=== PATIENT | female | born 1955 | race Two or more races ===

== ENCOUNTER 2017-05-14 05:02 | Inpatient (IN) | payer OTHER ==
[~2017-05-14] VITALS: Ht 165.1 cm; Wt 72.6 kg
[~2017-05-14 05:02] MED LIST: FOLI1TAB16 PO; FURO-145 PO; METO-295 PO; OMEP20TA5 PO; POTA10TA10 PO; PRAM0.253 PO; PROP80CA PO
[2017-05-14] MEDS ORDERED: MIDAZOLAM HCL 2 MG/2ML VIAL ONE (09:13)
[2017-05-14] MEDS ORDERED: MORPHINE SULFATE/PF 10 MG/10ML (1MG/ML) AMPUL ONE (09:13)
[2017-05-14] MEDS ORDERED: BACITRACIN 50000 UNITS/VIAL ONE (09:16)
[2017-05-14] MEDS ORDERED: TRANEXAMIC ACID 3,000 MG in SODIUM CHLORIDE IRRIG SOLUTION 70 ML IR ONE (09:30)
[2017-05-14] MEDS ORDERED: CLINDAMYCIN 900 MG/6 ML VIAL ONE (10:02)
[2017-05-14] MEDS ORDERED: MORPHINE SULFATE INJ 10 MG/ML DISP.SYRIN ONE (11:55)
[2017-05-14] MEDS ORDERED: ONDANSETRON HCL/PF 4 MG/2 ML VIAL ONE (11:59)
[2017-05-14 12:40] VITALS: BP 82/58
[2017-05-14] MEDS ORDERED: GABA600T2 PO (13:25)
[2017-05-14] MEDS ORDERED: ROPI0.5T PO (13:27)
[2017-05-14] MEDS ORDERED: MORPHINE SULFATE INJ 4 MG/ML DISP.SYRIN IV PRN (13:30)
[2017-05-14] MEDS: IV LR 1000 ML 1,000 ML IV PRN (13:49)
[2017-05-14] MEDS ORDERED: BISACODYL SUPP (10 MG) 10 MG/SUPP.RECT SUPP.RECT RC PRN (14:00)
[2017-05-14] MEDS ORDERED: SENNOSIDES 8.6 MG TABLET PO PRN (14:00)
[2017-05-14] MEDS ORDERED: HYDROCODONE/APAP 5/325MG 1 EACH TABLET PO PRN ×3 (14:00→16:00)
[2017-05-14] MEDS ORDERED: ONDANSETRON HCL/PF 4 MG/2 ML VIAL IV PRN ×2 (14:00→14:30)
[2017-05-14] MEDS ORDERED: ACETAMINOPHEN 325 MG TABLET PO PRN ×2 (14:00→16:00)
[2017-05-14] MEDS ORDERED: DOCUSATE SODIUM 100 MG CAPSULE PO PRN (14:00)
[2017-05-14] MEDS ORDERED: ZOLPIDEM TARTRATE 5 MG TABLET PO PRN ×2 (14:00→16:00)
--- NOTE | 2017-05-14 14:00 | NUR ---
RN ADMITTING NOTES PATIENT ARRIVED TO UNIT FROM OR. PATIENT ADMITTED TO ROOM 308-2. SYSTOLIC BLOOD PRESSURE IS 82. DR MCNEAL MADE AWARE. NO NEW ORDERS. WILL CONTINUE TO MONITOR AND ASSESS PATIENT THROUGHOUT MY SHIFT
[2017-05-14] MEDS ORDERED: HYDROMORPHONE 1 MG/1 ML DISP.SYRIN SQ PRN (14:30)
[2017-05-14] MEDS ORDERED: diphenhydrAMINE HCL 25 MG CAPSULE PO PRN (14:30)
[2017-05-14] MEDS ORDERED: MAG HYDROX/AL HYDROX/SIMETH 30 ML UDC PO PRN ×2 (14:30→16:00)
[2017-05-14] MEDS ORDERED: ropiniROLE 0.5 MG TABLET PO SCH (14:30)
[2017-05-14] MEDS ORDERED: MENTHOL/CETYLPYRD (CEPACOL) 1 LOZ LOZENGE PO PRN (14:30)
[2017-05-14] MEDS ORDERED: HYDROCODONE/APAP 10/325MG 1 EA TABLET PO PRN (14:30)
[2017-05-14] MEDS ORDERED: PRAMIPEXOLE DI-HCL 0.25 MG TABLET PO SCH (14:30)
[2017-05-14] MEDS ORDERED: BUTALB/APAP/CAFFEINE 1 EACH TABLET PO PRN ×2 (14:30→20:30)
[2017-05-14] MEDS ORDERED: HYDROMORPHONE 1 MG/1 ML DISP.SYRIN SQ ONE (14:54)
[2017-05-14] MEDS ORDERED: PROPRANOLOL HCL 40 MG TABLET PO ONE (15:00)
[2017-05-14] MEDS: ANCEF 1 GM/50 ML D5W IV SCH ×2 (15:29)
[2017-05-14] MEDS ORDERED: MORPHINE SULFATE INJ 4 MG/ML DISP.SYRIN IM PRN (15:30)
[2017-05-14] MEDS ORDERED: ONDANSETRON HCL/PF 4 MG/2 ML VIAL IVP PRN (16:00)
[2017-05-14] MEDS ORDERED: Z GUARD REMEDY 2 OZ OINT TP PRN (16:00)
[2017-05-14] MEDS ORDERED: MAGNESIUM HYDROXIDE 30 ML UDC PO PRN (16:00)
[2017-05-14] MEDS ORDERED: MORPHINE SULFATE INJ 4 MG/ML DISP.SYRIN IM ONE (16:30)
--- NOTE | 2017-05-14 16:45 | NUR ---
SYSTOLIC BLOOD PRESSURE 70/48. DR DUBOSE MADE AWARE. ENCOURAGED PATIENT TO DRINK LOTS OF FLUID. PATIENT IS ASYMPTOMATIC. PER PATIENT; THIS IS NORMAL FOR HER.
[2017-05-14] MEDS: ropiniROLE 0.5 MG TABLET PO SCH (16:57)
[2017-05-14] MEDS ORDERED: GABAPENTIN 300 MG CAPSULE PO SCH (17:00)
[2017-05-14] MEDS ORDERED: BUTALBITAL/ASPIRIN/CAFFEINE 1 CAP CAPSULE PO PRN (18:00)
--- NOTE | 2017-05-14 18:00 | NUR ---
NARES SWAB COLLECTED AND SENT TO LAB FOR MRSA TEST
[2017-05-14 18:01] VITALS: BP_SYST 116; BP_SYST 70; BP_DIAS 48; BP_DIAS 70
[2017-05-14] MEDS: GABAPENTIN 300 MG CAPSULE PO SCH (18:05)
--- NOTE | 2017-05-14 18:45 | NUR ---
IV IS LEAKING. DC IV SITE AND STARTED A NEW R. AC 22G
--- NOTE | 2017-05-14 19:01 | NUR ---
RN CLOSING NOTES PATIENT IS IN BED. ALERT AND ORIENTED TO NAME, PLACE AND TIME. NO SIGNS AND SYMPTOMS OF DISTRESS. DENIED PAIN. IV SITE IS INTACT AND PATENT. ALL NURSING CARE ANTICIPATED AND MET. PATIENT KEPT SAFE AND CLEAN. BED IN LOW POSITION, LOCKED AND TWO SIDE RAILS ARE UP. CALL LIGHT WITHIN REACH FOR SAFETY. WILL ENDORSE TO INTELLECTUAL PROPERTY LAWYER NURSE.
[2017-05-14 20:00] VITALS: BP 93/47
--- NOTE | 2017-05-14 20:05 | NUR ---
RN NOTES RECEIVED PATIENT IN BED, ALERT AND ORIENTED X4, CALM, NO SOB, ON ROOM AIR, SPO2 99%, S/P RIGHT HIP SURGERY THIS AFTERNOON, RIGHT HIP WITH DRESSING, NO BLEEDING, HIP ABDUCTION PILLOW IN PLACE, NO COMPLAIN OF PAIN, RIGHT AC PERIPHERAL LINE IS PATENT AND INFUSING WELL, PER ENDORSEMENT, BP RUNS LOW, RECEIVING LR AT 100 CC/HR, NEEDS ATTENDED, CALL LIGHT WITHIN REACH. WILL CONTINUE TO MONITOR.
[2017-05-14 20:10] VITALS: BP 93/47
[2017-05-14] MEDS ORDERED: oxyCODONE HCL SR 20MG TAB.SR.12H PO SCH (21:00)
--- NOTE | 2017-05-14 21:44 | NUR ---
RN NOTES RIGHT AC PERIPHERAL LINE IS INFILTRATED, UNABLE TO REINSERT IV LINE. DR. HYMAN ORDERED MIDLINE INSERTION
[2017-05-14] MEDS: PRAMIPEXOLE DI-HCL 0.25 MG TABLET PO SCH (21:50)
[2017-05-14] MEDS: PANTOPRAZOLE 40 MG TABLET.DR PO SCH (21:50)
--- NOTE | 2017-05-14 22:45 | NUR ---
RN NOTES MIDLINE INSERTED USING #18 GAUGE, PROCEDURE TOLERATED WELL, REMOVED AC PERIPHERAL LINE
[2017-05-15] MEDS: ANCEF 1 GM/50 ML D5W IV SCH ×2 (00:05)
[2017-05-15] MEDS: oxyCODONE IR immediate release 5 MG CAPSULE PO PRN ×4 (02:44→23:04)
[2017-05-15] MEDS: IV LR 1000 ML 1,000 ML IV PRN ×3 (02:52→23:02)
--- NOTE | 2017-05-15 06:47 | NUR ---
RN NOTES PATIENT IN BED, ALERT AND AWAKE, NO SOB, NO RESPIRATORY DISTRESS, SPO2 AT ROOM AIR 96%, GIVEN OXYCODONE 5 MG PRN, FAY MIDLINE INFUSING WELL, PROVIDED GOOD PERINEAL CARE, REPOSITIONED FOR COMFORT, HIP ABDUCTOR PILLOW IN PLACE, NEEDS ATTENDED, CALL LIGHT WITHIN REACH.
[2017-05-15 06:53] LABS: BASOPHILS % (AUTO) 0.2 % (0.0-2.0); EOSINOPHILS % (AUTO) 0.1 % (0.0-6.0); HEMATOCRIT 25 % (33-45); HEMOGLOBIN 8.5 g/dL (11.5-14.8); LYMPHOCYTES # (AUTO) 1.2 /CMM (0.8-4.8); LYMPHOCYTES % (AUTO) 16.3 % (20.0-44.0); MEAN CORPUSCULAR HEMOGLOBIN 31 PG (26.0-33.0); MEAN CORPUSCULAR HGB CONC 34 g/dl (31.0-36.0); MEAN CORPUSCULAR VOLUME 89 fL (82-100); MONOCYTES # (AUTO) 0.6 /CMM (0.1-1.30); MONOCYTES % (AUTO) 8.2 % (2.0-12.0); NEUTROPHILS # (AUTO) 5.7 /CMM (1.8-8.9); NEUTROPHILS % (AUTO) 75.2 % (43.0-81.0); PLATELET COUNT (AUTO) 170 /CMM (150-450); RDW COEFFICIENT OF VARIATION 14.2 (11.5-15.0); RED BLOOD CELL COUNT(AUTO) 2.79 MIL/uL (4.0-5.2); WHITE BLOOD COUNT (AUTO) 7.5 K/uL (4.3-11.0)
[2017-05-15 06:56] LABS: INR 1.03 (0.87-1.13); PROTHROMBIN TIME 10.7 SECS (9.5-12.7)
--- NOTE | 2017-05-15 07:15 | NUR ---
RN OPEN NOTES RECEIVED REPORT FROM MOLDING ROOM SUPERVISOR NURSE. PATIENT IS IN BED. ALERT AND ORIENTED TO NAME,PLACE AND TIME. NO SIGNS AND SYMPTOMS OF DISTRESS. PAIN LEVEL 2/10. BED IN LOW POSITION, LOCKED AND TWO SIDE RAILS ARE UP. CALL LIGHT WITHIN REACH FOR SAFETY. WILL CONTINUE TO MONITOR AND ASSESS PATIENT THROUGH OUT MY SHIFT
[2017-05-15 08:00] VITALS: BP 78/53
[2017-05-15 08:06] LABS: ALBUMIN 2.8 g/dL (3.4-5.0); BILIRUBIN,TOTAL 0.5 mg/dL (0.2-1.0); CALCIUM, SERUM 7.8 mg/dL (8.5-10.1); CREATININE 0.8 mg/dL (0.6-1.3); MAGNESIUM 1.8 mg/dL (1.8-2.4); PHOSPHORUS 2.8 mg/dL (2.5-4.9); POTASSIUM 3.8 mmol/L (3.5-5.1); TOTAL PROTEIN, SERUM 5.5 g/dL (6.4-8.2)
[2017-05-15 08:15] LABS: THYROID STIMULATING HORMONE 0.907 uIU/mL (0.358-3.74)
[2017-05-15] MEDS: GABAPENTIN 300 MG CAPSULE PO SCH ×3 (08:24→16:34)
[2017-05-15] MEDS: FOLIC ACID 1 MG TABLET PO SCH (08:24)
[2017-05-15] MEDS: ropiniROLE 0.5 MG TABLET PO SCH (08:24)
[2017-05-15] MEDS: PROPRANOLOL HCL 40 MG TABLET PO SCH (08:28)
[2017-05-15] MEDS ORDERED: Medication Not On Formulary EA (Propranolol HCl (Inderal LA) 80 MG) PO SCH (09:00)
[2017-05-15] MEDS ORDERED: PRAMIPEXOLE DI-HCL 0.25 MG TABLET PO SCH (09:00)
[2017-05-15 09:21] LABS: IRON, SERUM 27 ug/dl (50-175); TOTAL IRON BINDING CAPACITY 213 ug/dl (250-450)
[2017-05-15 12:32] VITALS: BP 83/51
[2017-05-15 16:00] VITALS: BP 96/56
[2017-05-15] MEDS: RIVAROXABAN 10 MG TABLET PO SCH (16:34)
--- NOTE | 2017-05-15 18:36 | NUR ---
RN CLOSING NOTES PATIENT IS IN BED. ALERT AND ORIENTED TO NAME, PLACE AND TIME. NO SIGNS AND SYMPTOMS OF DISTRESS. DENIED PAIN. MIDLINE IS INTACT AND PATENT. ALL NURSING CARE ANTICIPATED AND MET. PATIENT KEPT SAFE AND CLEAN. BED IN LOW POSITION, LOCKED AND TWO SIDE RAILS ARE UP. CALL LIGHT WITHIN REACH FOR SAFETY. WILL ENDORSE TO INTERNAL AFFAIRS INVESTIGATOR NURSE.
--- NOTE | 2017-05-15 19:30 | NUR ---
RN NOTES RECEIVED PATIENT IN BED ASLEEP, EASILY AROUSABLE. AO X 3, ABLE TO MAKE NEEDS KNOWN. NO ACUTE DISTRESS NOTED. DENIES ANY PAIN AT THIS TIME. IV SITE PATENT, INTACT; FLUSHED. ABDUCTION PILLOW IN PLACE. HIP PRECAUTIONS MAINTAINED. SAFETY REMINDERS GIVEN. ON LOW BED WITH BILATERAL UPPER SIDE RAILS UP. CALL BUTTON WITHIN EASY REACH. WILL CONTINUE TO MONITOR.
[2017-05-15 20:00] VITALS: BP 88/56
[2017-05-15 20:05] VITALS: BP 88/56
[2017-05-15] MEDS: PRAMIPEXOLE DI-HCL 0.25 MG TABLET PO SCH (21:18)
[2017-05-15] MEDS: PANTOPRAZOLE 40 MG TABLET.DR PO SCH (21:18)
--- NOTE | 2017-05-15 21:44 | NUR ---
POD#1 S/P Right total hip arthroplasty.. Patient is alert and pleasant. Lives at home with her spouse. Prior to admission, she was ambulatory and independent with adl's. She own a walker and raised toilet seat. No homehealth reported. Current plan is home vs ARU - pending insurance auth. Addendum: 05/15/17 at 2147 by JORGE REYNOSO RN Amended: Links added.
--- NOTE | 2017-05-16 06:23 | NUR ---
N NOTES PATIENT ASLEEP, EASILY AROUSABLE. RESPIRATIONS EVEN. NO SIGNS OF PAIN NOTED. DUE MEDS GIVEN WITH NO ASE NOTED. NEEDS ATTENDED. KEPT CLEAN AND DRY. SAFETY PRECAUTIONS AND COMFORT MEASURES IN PLACE. WILL GIVE REPORT TO DAY SHIFT FOR CONTINUITY OF CARE.
[2017-05-16 06:57] LABS: BASOPHILS % (AUTO) 0.1 % (0.0-2.0); CALCIUM, SERUM 7.5 mg/dL (8.5-10.1); CREATININE 0.7 mg/dL (0.6-1.3); EOSINOPHILS % (AUTO) 0.4 % (0.0-6.0); HEMATOCRIT 22 % (33-45); HEMOGLOBIN 7.5 g/dL (11.5-14.8); LYMPHOCYTES # (AUTO) 0.9 /CMM (0.8-4.8); LYMPHOCYTES % (AUTO) 12.3 % (20.0-44.0); MAGNESIUM 1.7 mg/dL (1.8-2.4); MEAN CORPUSCULAR HEMOGLOBIN 31 PG (26.0-33.0); MEAN CORPUSCULAR HGB CONC 34 g/dl (31.0-36.0); MEAN CORPUSCULAR VOLUME 90 fL (82-100); MONOCYTES # (AUTO) 0.8 /CMM (0.1-1.30); NEUTROPHILS # (AUTO) 5.4 /CMM (1.8-8.9); NEUTROPHILS % (AUTO) 76.2 % (43.0-81.0); PHOSPHORUS 1.8 mg/dL (2.5-4.9); PLATELET COUNT (AUTO) 145 /CMM (150-450); POTASSIUM 3.7 mmol/L (3.5-5.1); RDW COEFFICIENT OF VARIATION 13.6 (11.5-15.0); RED BLOOD CELL COUNT(AUTO) 2.45 MIL/uL (4.0-5.2); WHITE BLOOD COUNT (AUTO) 7.1 K/uL (4.3-11.0)
--- NOTE | 2017-05-16 07:30 | NUR ---
RN MS NOTES PT IN BED, AWAKE, ALERT AND ORIENTED, NO COMPLAINT OF PAIN AT THIS TIME, BREATHING PATTERN NORMAL, IV FLUIDS INFUSING WELL, F/C IN PLACE, DRAINING WELL WITH CLEAR, YELLOW URINE, CALL LIGHT WITHIN REACH, NEEDS ATTENDED.
[2017-05-16 08:36] VITALS: BP 99/58
[2017-05-16] MEDS: oxyCODONE IR immediate release 5 MG CAPSULE PO PRN (08:45)
[2017-05-16] MEDS: GABAPENTIN 300 MG CAPSULE PO SCH ×3 (08:45→17:31)
[2017-05-16] MEDS: FOLIC ACID 1 MG TABLET PO SCH (08:45)
[2017-05-16] MEDS: PROPRANOLOL HCL 40 MG TABLET PO SCH (09:00)
[2017-05-16] MEDS: Magnesium 1GM/D5W 100ML PREMIX 100 ML IV SCH ×2 (10:39→11:47)
--- NOTE | 2017-05-16 11:21 | NUR ---
RN MS NOTES PT IN BED, PT COMPLETED PHYSICAL THERAPY EXERCISES, ABLE TO WALK WITH WALKER WITH PT ASSISTANCE, TOLERATED WELL, SEEN BY SJ FRUCTOSE LOADER, ORDERS GIVEN, PT INFORMED OF PLAN OF CARE, ORDER RECEIVED FOR I UNIT PRBC TRANSFUSION, PT INFORMED, CONSENT GIVEN, ASSISTED PT TO BED, CALL LIGHT PLACED WITHIN REACH.
[2017-05-16] MEDS: IV LR 1000 ML 1,000 ML IV PRN (11:47)
[2017-05-16 16:00] VITALS: BP 98/45
[2017-05-16 16:04] VITALS: BP 92/48
[2017-05-16 16:19] VITALS: BP 93/49
[2017-05-16] MEDS ORDERED: K PHOS NEUTRAL 250 MG TABLET PO ONE (17:30)
[2017-05-16] MEDS: RIVAROXABAN 10 MG TABLET PO SCH (17:32)
--- NOTE | 2017-05-16 18:30 | NUR ---
RN MS NOTES PT IN BED, RESTING, DENIES PAIN, NOT IN DISTRESS, COMPLETED 1 UNIT PRBC TRANSFUSION ORDERED, PM MEDS GIVEN ORDERED, TOLERATING CURRENT DIET WELL, ALL NEEDS ATTENDED.
[2017-05-16 19:03] VITALS: BP 99/60
--- NOTE | 2017-05-16 19:30 | NUR ---
MS/RN RECEIVE PATIENT AWAKE, ALERT, ORIENTED, COMFORTABLE, NO C/O PAIN, NO DISTRESS NOTED CALL LIGHT IN REACH. ALL NEEDS ATTENDED AT THIS TIME. WILL CONTINUE TO MONITOR.
[2017-05-16 20:00] VITALS: BP 98/56
[2017-05-16] MEDS: PRAMIPEXOLE DI-HCL 0.25 MG TABLET PO SCH (21:45)
[2017-05-16] MEDS: PANTOPRAZOLE 40 MG TABLET.DR PO SCH (21:45)
[2017-05-16] MEDS: MUPIROCIN OINT 2% 22 GM TUBE SCH (21:46)
[2017-05-17] MEDS: oxyCODONE IR immediate release 5 MG CAPSULE PO PRN ×2 (04:28→09:28)
--- NOTE | 2017-05-17 07:10 | NUR ---
RN OPEN NOTES RECEIVED REPORT FROM GIS DATABASE ADMINISTRATOR NURSE. PATIENT IS IN BED. PATIENT IS ALERT AND ORIENTED TO NAME, PLACE AND TIME. NO SIGNS AND SYMPTOMS OF DISTRESS. BED IN LOW POSITION, LOCKED AND TWO SIDE RAILS ARE UP. CALL LIGHT WITHIN REACH FOR SAFETY. WILL CONTINUE TO ASSESS AND MONITOR PATIENT THROUGH OUT MY SHIFT
[2017-05-17 07:56] LABS: BASOPHILS % (AUTO) 0.1 % (0.0-2.0); EOSINOPHILS # (AUTO) 0.1 /CMM (0.0-0.7); EOSINOPHILS % (AUTO) 0.8 % (0.0-6.0); HEMATOCRIT 24 % (33-45); HEMOGLOBIN 8.1 g/dL (11.5-14.8); LYMPHOCYTES % (AUTO) 14.8 % (20.0-44.0); MEAN CORPUSCULAR HEMOGLOBIN 30 PG (26.0-33.0); MEAN CORPUSCULAR HGB CONC 33 g/dl (31.0-36.0); MEAN CORPUSCULAR VOLUME 90 fL (82-100); MONOCYTES # (AUTO) 0.7 /CMM (0.1-1.30); MONOCYTES % (AUTO) 9.8 % (2.0-12.0); NEUTROPHILS # (AUTO) 5.1 /CMM (1.8-8.9); NEUTROPHILS % (AUTO) 74.5 % (43.0-81.0); PLATELET COUNT (AUTO) 148 /CMM (150-450); RDW COEFFICIENT OF VARIATION 14.4 (11.5-15.0); RED BLOOD CELL COUNT(AUTO) 2.72 MIL/uL (4.0-5.2); WHITE BLOOD COUNT (AUTO) 6.9 K/uL (4.3-11.0)
[2017-05-17 08:00] VITALS: BP 94/59
[2017-05-17] MEDS: MUPIROCIN OINT 2% 22 GM TUBE SCH ×2 (08:23→21:08)
[2017-05-17] MEDS: PROPRANOLOL HCL 40 MG TABLET PO SCH (08:23)
[2017-05-17] MEDS: FOLIC ACID 1 MG TABLET PO SCH (08:24)
[2017-05-17] MEDS: GABAPENTIN 300 MG CAPSULE PO SCH ×3 (08:24→16:34)
[2017-05-17 08:31] LABS: CALCIUM, SERUM 7.4 mg/dL (8.5-10.1); CREATININE 0.6 mg/dL (0.6-1.3); MAGNESIUM 1.9 mg/dL (1.8-2.4); PHOSPHORUS 2.3 mg/dL (2.5-4.9); POTASSIUM 3.7 mmol/L (3.5-5.1)
--- NOTE | 2017-05-17 11:30 | NUR ---
VIGIL REMOVED. 10CC DEFLATE THE BALLOON. PATIENT TOLERATED PROCEDURE WELL. BEDSIDE COMMODE AT BEDSIDE.
--- NOTE | 2017-05-17 14:15 | NUR ---
PATIENT WAS ABLE TO MOVE FROM THE BED TO THE BSC WITH ASSISTANCE. PATIENT WAS ABLE TO URINATE POST-VIGIL WITH NO DIFFICULTY.
[2017-05-17 16:00] VITALS: BP 93/53
[2017-05-17] MEDS ORDERED: K PHOS NEUTRAL 250 MG TABLET PO ONE (16:30)
[2017-05-17] MEDS: RIVAROXABAN 10 MG TABLET PO SCH (16:35)
--- NOTE | 2017-05-17 19:19 | NUR ---
RN CLOSING NOTES REPORT GAVE TO CLIP ON SUNGLASSES INSPECTOR NURSE. PATIENT IS IN BED. ALERT AND ORIENTED TO NAME, PLACE AND TIME. NO SIGNS AND SYMPTOMS OF DISTRESS. DENIED PAIN. MIDLINE IS INTACT AND PATENT, HL ONLY. ALL NURSING CARE ANTICIPATED AND MET. PATIENT KEPT SAFE AND CLEAN. BED IN LOW POSITION, LOCKED AND TWO SIDE RAILS ARE UP. CALL LIGHT WITHIN REACH FOR SAFETY.
--- NOTE | 2017-05-17 19:50 | NUR ---
MS/RN RECEIVE PATIENT SITTING ON THE BSC, COMFORTABLE, NO C/O PAIN, NO DISTRESS NOTED. ASSISTED BACK TO BED, TOLERATED. MADE COMFORTABLE, CALL LIGHT IN REACH. WILL MONITOR.
[2017-05-17 20:00] VITALS: BP 90/52
[2017-05-17] MEDS: PRAMIPEXOLE DI-HCL 0.25 MG TABLET PO SCH (21:04)
[2017-05-17] MEDS: PANTOPRAZOLE 40 MG TABLET.DR PO SCH (21:04)
--- NOTE | 2017-05-18 06:02 | NUR ---
MS/RN SLEEPING, EASILY AROUSABLE, SLEPT GOOD THE WHOLE SHIFT, NO CHANGE IN CONDITION, ALL NEEDS ATTENDED AT THIS TIME. WILL CONTINUE TO MONITOR.
[2017-05-18 06:35] LABS: BASOPHILS % (AUTO) 0.3 % (0.0-2.0); EOSINOPHILS # (AUTO) 0.2 /CMM (0.0-0.7); EOSINOPHILS % (AUTO) 3.7 % (0.0-6.0); HEMATOCRIT 23 % (33-45); HEMOGLOBIN 7.9 g/dL (11.5-14.8); LYMPHOCYTES % (AUTO) 18.8 % (20.0-44.0); MEAN CORPUSCULAR HEMOGLOBIN 31 PG (26.0-33.0); MEAN CORPUSCULAR HGB CONC 34 g/dl (31.0-36.0); MEAN CORPUSCULAR VOLUME 90 fL (82-100); MONOCYTES # (AUTO) 0.5 /CMM (0.1-1.30); MONOCYTES % (AUTO) 9.9 % (2.0-12.0); NEUTROPHILS # (AUTO) 3.5 /CMM (1.8-8.9); NEUTROPHILS % (AUTO) 67.3 % (43.0-81.0); PLATELET COUNT (AUTO) 188 /CMM (150-450); RDW COEFFICIENT OF VARIATION 14.1 (11.5-15.0); RED BLOOD CELL COUNT(AUTO) 2.58 MIL/uL (4.0-5.2); WHITE BLOOD COUNT (AUTO) 5.2 K/uL (4.3-11.0)
[2017-05-18 06:56] LABS: CALCIUM, SERUM 7.8 mg/dL (8.5-10.1); CREATININE 0.6 mg/dL (0.6-1.3); MAGNESIUM 1.8 mg/dL (1.8-2.4); PHOSPHORUS 2.7 mg/dL (2.5-4.9); POTASSIUM 3.4 mmol/L (3.5-5.1)
--- NOTE | 2017-05-18 07:15 | NUR ---
RN OPEN NOTES RECEIVED REPORT FROM DIRECTOR INFORMATICS NURSE. PATIENT IS IN BED, AWAKE. PATIENT IS ALERT AND ORIENTED TO NAME, PLACE AND TIME. NO SIGNS AND SYMPTOMS OF DISTRESS. BED IN LOW POSITION, LOCKED AND TWO SIDE RAILS ARE UP. CALL LIGHT WITHIN REACH FOR SAFETY. WILL CONTINUE TO ASSESS AND MONITOR PATIENT THROUGH OUT MY SHIFT
[2017-05-18 08:00] VITALS: BP 101/64
[2017-05-18 08:35] VITALS: BP 101/64
[2017-05-18] MEDS: PROPRANOLOL HCL 40 MG TABLET PO SCH (08:35)
--- NOTE | 2017-05-18 08:35 | NUR ---
INDERAL HELD DUE TO LOW BLOOD PRESSURE 101/64. PATIENT BLOOD PRESSURE HAS BEEN IN THE LOW 80 - 90 IN THE PAST 2 DAYS.
[2017-05-18] MEDS: GABAPENTIN 300 MG CAPSULE PO SCH ×2 (08:36→12:57)
[2017-05-18] MEDS: FOLIC ACID 1 MG TABLET PO SCH (08:36)
[2017-05-18] MEDS: MUPIROCIN OINT 2% 22 GM TUBE SCH (08:38)
--- NOTE | 2017-05-18 11:02 | NUR ---
PATIENT WILL LEAVE TO [facility] AT 1400. PATIENT IS GOING TO BED 4422-C
--- NOTE | 2017-05-18 11:13 | NUR ---
CALLED [facility] AT [phone] TO GIVE REPORT. NURSE LIN (RN) WAS UNAVAILABLE TO TAKE REPORT. LEFT MY NAME (CHARLENE) AND NUMBER FOR HER TO CALL BACK WHEN AVAILABLE
--- NOTE | 2017-05-18 11:45 | NUR ---
GAVE REPORT TO [facility] AT 11:45AM. SPOKE WITH EMMETT BRAXTON. PATIENT IS GOING TO ROOM [facility]
[2017-05-18] MEDS ORDERED: PRAM0.253 PO (11:55)
[2017-05-18] MEDS ORDERED: SENN-167 PO (11:55)
[2017-05-18] MEDS ORDERED: DOCU-141 PO (11:55)
[2017-05-18] MEDS ORDERED: RIVA10TA PO (11:55)
[2017-05-18] MEDS: oxyCODONE IR immediate release 5 MG CAPSULE PO PRN (12:57)
[2017-05-18] MEDS ORDERED: POTASSIUM CHLORIDE 20 MEQ TAB.PRT.SR PO SCH (13:00)
--- NOTE | 2017-05-18 13:00 | NUR ---
DRESSING CHANGE COMPLETED AND PICTURE WAS TAKEN AND PLACED IN THE CHART
--- NOTE | 2017-05-18 14:54 | NUR ---
SPORTS STATISTICIAN NOTES PATIENT DISCHARGE ORDER RECEIVED. PATIENT IS LEAVING IN A STABLE CONDITION. NO SIGNS AND SYMPTOMS OF DISTRESS. ALL DISCHARGE INSTRUCTION EXPLAINED TO [facility] AND [facility], EMMETT BRAXTON. ALL PERSONAL BELONGING WITH PATIENT AT TIME OF DISCHARGE. BOTH BELONGING FORM AND DISCHARGE FORM SIGNED BY PATIENT AND PLACED IN THE CHART. NO NEW CONCERNS IDENTIFY BY PATIENT. MIDLINE REMOVED. ID BAND REMOVED. SURGERY SITE PICTURE WAS TAKEN AND PLACED IN THE CHART. PATIENT PICKED UP BY AMBULANCE AND 2 outsole leveler. PATIENT LEFT AT 1452.
== END 2017-05-18 14:52 | DRG 470 ==
LOC: DS 05:02 → MED 13:01
PROVIDERS: ADMIT Specialist
PROC: 0SR90JZ Replacement of Right Hip Joint with Synthetic Substitute, Open Approach (ICD-10-PCS; principal; 2017-05-14 10:45)
PROC: 30233N1 Transfusion of Nonautologous Red Blood Cells into Peripheral Vein, Percutaneous Approach (ICD-10-PCS; 2017-05-16)
DX: M16.11 Unilateral primary osteoarthritis, right hip (principal); E66.9 Obesity, unspecified; D62 Acute posthemorrhagic anemia; E78.5 Hyperlipidemia, unspecified; J44.9 Chronic obstructive pulmonary disease, unspecified; K21.9 Gastro-esophageal reflux disease without esophagitis; I10 Essential (primary) hypertension; G43.909 Migraine, unspecified, not intractable, without status migrainosus; Z90.710 Acquired absence of both cervix and uterus; Z87.891 Personal history of nicotine dependence; J45.909 Unspecified asthma, uncomplicated; G25.81 Restless legs syndrome; Z68.26 Body mass index [BMI] 26.0-26.9, adult
CPT/HCPCS: 36415; 71010-TC; 80048-TC; 80053-TC; 80061-TC; 82746; 83540-TC; 83735-TC; 84100-TC; 84443-TC; 85025-TC; 85730-TC; 86850-TC; 86921-TC; 87081-TC; 97110-TC; 97116-TC; 97530-TC; A4217; A6209; A6402; J0690; J1100; J2250; J2270; J2274; J2405; J2704; J3475; J3490; J7050; J7060; J7120; P9016-BL